=== PATIENT | female | born 1990 | race Two or more races ===

== ENCOUNTER 2016-09-17 09:17 | Emergency (ER) | payer BC, MEDICAID, OTHER ==
[2016-09-17 09:23] VITALS: BP 127/89
--- NOTE | 2016-09-17 09:38 | ER Document Report ---
ED General - General Chief Complaint: Headache Stated Complaint: COUGH, NOSE BLEED Time Seen by Provider: 09/17/16 09:34 Mode of Arrival: Ambulatory Information source: Patient Notes: 26-year-old female reports 2 week history of intermittent discomfort in left ear nasal congestion intermittent nosebleeds nonproductive cough. She also reports a one episode of vomiting yesterday. She also reports 3 days ago having onset of heavy period but she says that that is typical for her since she got a depth shot with frequent irregular heavy periods. She denies chest pain, abdominal pain, or back pain. He reports no vomiting or diarrhea this morning. She reports she was able to eat yesterday. Physical Exam: General: Alert, appears well. HEENT: Normocephalic. Atraumatic. PERRLA. Extraocular movements intact. Oropharynx clear. Panic members are canals clear Neck: Supple. Non-tender. No adenopathy no JVD Respiratory: No respiratory distress. Clear and equal breath sounds bilaterally. Cardiovascular: Regular rate and rhythm. Abdominal: Normal Inspection. Soft, non-tender. No distension. Normal Bowel Sounds. Back: Non-tender. No deformity or step off. Extremities all warm to plus pulses no cyanosis no edema Neurological: Speech clear mentation normal ambulates without difficulty Psychological: Normal affect. Normal Mood. Skin: Warm. Dry. Normal color. TRAVEL OUTSIDE OF THE [place] IN LAST 30 DAYS: No - Related Data Allergies/Adverse Reactions: iodine [Iodine] Allergy (Verified 05/23/15 05:20) Shellfish * [Shellfish] Allergy (Verified 05/23/15 05:20) Past Medical History - Social History Smoking Status: Current Some Day Smoker Chew tobacco use (# tins/day): No Drug Abuse: None Family History: CAD, DM, Hypertension Patient has suicidal ideation: No Patient has homicidal ideation: No Pulmonary Medical History: Reports: Hx Asthma - childhood Neurological Medical History: Reports: Hx Migraine Renal/ Medical History: Denies: Hx Peritoneal Dialysis - Immunizations Immunizations up to date: Yes Hx Diphtheria, Pertussis, Tetanus Vaccination: No Review of Systems - Review of Systems Constitutional: denies: Chills, Fever EENT: See HPI Cardiovascular: denies: Chest pain, Palpitations, Syncope Respiratory: Cough. denies: Short of breath, Wheezing Gastrointestinal: See HPI. denies: Abdominal pain Genitourinary: denies: Burning Female Genitourinary: Last menstrual period - Now, Heavy/abnormal periods, Vaginal bleeding Musculoskeletal: denies: Back pain Skin: denies: Rash Hematologic/Lymphatic: denies: Swollen glands Neurological/Psychological: denies: Weakness, Numbness Physical Exam - Vital signs Vitals: Temp Pulse Resp BP Pulse Ox 98.6 F 85 14 127/89 H 99 09/17/16 09:20 09/17/16 09:20 09/17/16 09:20 09/17/16 09:20 09/17/16 09:20 Course - Re-evaluation Re-evalutation: 09/17/16 10:20 Patient reports that she frequently develops nausea vomiting and abdominal cramping with her periods no discussed with her she should follow up with her OB /[employer] for that. She is not now has benign abdominal exam and no indication for further workup for this in the emergency department. Similar symptoms are also consistent with viral URI sheet instructed to take over-the- counter medicines for that. She also reports that she was having nosebleeds this morning but this stopped spontaneously discussed use of direct pressure and ice packs. There is no active bleeding now. - Vital Signs Vital signs: Temp Pulse Resp BP Pulse Ox 98.6 F 85 14 127/89 H 99 09/17/16 09:20 09/17/16 09:20 09/17/16 09:20 09/17/16 09:20 09/17/16 09:20 Discharge - Discharge Clinical Impression: Epistaxis, Menorrhagia with irregular cycle Upper respiratory tract infection Qualifiers: URI type: unspecified URI Qualified Code(s): J06.9 - Acute upper respiratory infection, unspecified Condition: Stable Disposition: HOME, SELF-CARE Instructions: Upper Respiratory Illness ([facility]) Additional Instructions: Menorrhagia You are having severe bleeding from the uterus. We call this menorrhagia. It is most often caused by a hormone imbalance. The lining of the uterus grows too thick, then comes sloughs off with severe bleeding. There's often cramping and passage of clots. Sometimes menorrhagia is caused by benign muscle tumors in the uterus, called fibroids. There's no evidence of miscarriage or tubal . Menorrhagia often has no clear cause. But it's especially common at times when the normal menstrual cycle is disturbed -- whether by recent , use of hormones, or impending menopause. Some medical problems, such as obesity , stress, or thyroid problems make menorrhagia more likely. In many cases, the menstrual cycle will return to normal without treatment. Antiinflammatory pain medicine, like ibuprofen, can decrease cramping. Where the bleeding is significant, high-dose estrogen will usually stop the bleeding within a day of two. A cycle or two of hormones ( control pills) can help restore the uterus to normal. In some patients where bleeding is severe or resistant to treatment, a D&C is required. A endometrial biopsy (a sample of the inside of the uterus) may be recommended for some older women. This would be done by a gynecology specialist. Treatment for anemia may be required if bleeding is severe. You should rest and avoid intercourse until the bleeding is controlled. Call the doctor or return for re-examination if you feel faint, have increasing pain, or have a major increase in the amount of bleeding. Forms: Return to Work Referrals: [facility] [Provider Group] - Follow up in 1 week
== END 2016-09-17 10:36 | disposition home or self-care (01) ==
LOC: ER 09:17
DX: J06.9 Acute upper respiratory infection, unspecified (principal); N92.1 Excessive and frequent menstruation with irregular cycle; R04.0 Epistaxis; R05 Cough; R11.10 Vomiting, unspecified; Z91.013 Allergy to seafood; F17.200 Nicotine dependence, unspecified, uncomplicated
CPT/HCPCS: 81025; 99283

== ENCOUNTER 2016-09-20 09:14 | Emergency (ER) | payer BC ==
[2016-09-20] MEDS ORDERED: ACETAMINOPHEN 325 MG TABLET PO ONE (09:39)
[2016-09-20] MEDS ORDERED: ONDANSETRON 4 MG TAB.RAPDIS PO ONE (09:39)
--- NOTE | 2016-09-20 09:44 | ER Document Report ---
HPI - HPI Patient complains to provider of: sore throat, ear pain Onset: Other - Ear pain 17 days, sore throat 3 days Onset/Duration: Persistent Quality of pain: Achy Pain Level: 4 Context: Patient presents complaining of left-sided headache pain off and on for the past 17 days with sore throat and left ear pain that has now moved to involve bilateral ears. Patient reports cough for the past week. Patient does complain of some nausea last vomited 4 days ago. Patient was evaluated here and diagnosed with a URI 3 days ago. Patient reports that she noticed some drainage on her pillow after laying her head down and suspects that the drainage came from her left ear. Patient reports headache pain is typical of migraines that she has had in the past. Associated Symptoms: Nonproductive cough - 17 days, Earache - 4 days ago, Fever , Headache - 1 week off and on 17 days, Nausea, Vomiting - 4 days ago Exacerbated by: Other - Light and noise effect headache Relieved by: Denies Similar symptoms previously: Yes Recently seen / treated by doctor: Yes - ROS ROS below otherwise negative: Yes Systems Reviewed and Negative: Yes All other systems reviewed and negative - CONSTITUTIONAL Constitutional: REPORTS: Fever - 4 days ago - EENT EENT: REPORTS: Sore Throat, Ear Pain - NEURO Neurology: REPORTS: Headache - CARDIOVASCULAR Cardiovascular: DENIES: Chest pain - RESPIRATORY Respiratory: REPORTS: Coughing. 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 IN LAST 30 DAYS: No - HEENT HEENT: Atraumatic, Normocephalic, Pharyngeal Tenderness. negative: Pharyngeal Exudate, Pharyngeal Erythema, Tympanic Membrane Red, Tympanic Membrane Bulging - NECK Neck: Lymphadenopathy-Left, Lymphadenopathy-Right Notes: No meningismus - RESPIRATORY Respiratory: Breath Sounds Normal, No Respiratory Distress, Chest Non-Tender - CARDIOVASCULAR Cardiovascular: Regular Rate, Regular Rhythm, No Murmur - BACK Back: Normal Inspection - MUSCULOSKELETAL/EXTREMETIES Musculoskeletal/Extremeties: PÉREZ MCLEAN - NEURO Level of Consciousness: Awake, Alert, Appropriate Motor/Sensory: No Motor Deficit, No Sensory Deficit - DERM Integumentary: Warm, Dry, No Rash Course - Re-evaluation Re-evalutation: 09/20/16 10:36 Spoke with laboratory geneticist who states that it will be 10 more minutes for rapid strep results. - Laboratory Laboratory results interpreted by me: 09/20/16 10:48 Labs- Entire Visit 09/20/16 09:48 Group A Strep Rapid NEGATIVE Discharge - Discharge Clinical Impression: Sore throat, Otalgia of both ears URI (upper respiratory infection) Qualifiers: URI type: unspecified URI Qualified Code(s): J06.9 - Acute upper respiratory infection, unspecified Headache Qualifiers: Headache type: unspecified Headache chronicity pattern: episodic headache Intractability: not intractable Qualified Code(s): R51 - Headache Condition: Stable Disposition: HOME, SELF-CARE Instructions: Upper Respiratory Illness ([facility]), Sore Throat ([facility]), Headache ([facility] ) Additional Instructions: Return immediately for any new or worsening symptoms Followup with your primary care provider, call tomorrow to make a followup appointment Throat culture is pending, we will call if you need any different treatment. Prescriptions: Butalb/Acetaminophen/Caffeine [Fioricet (50-325-40 mg) Tablet] 1 - 2 tab PO Q4H #12 each Ondansetron HCl [Zofran 4 mg Tablet] 1 - 2 tab PO Q6 PRN #10 tablet PRN Reason: Forms: Return to Work Referrals: [facility] [Provider Group] - Follow up as needed [facility] [Provider Group] - 09/22/16
[2016-09-20 11:06] VITALS: BP 110/65
== END 2016-09-20 11:05 | disposition home or self-care (01) ==
LOC: ER 09:14
DX: J06.9 Acute upper respiratory infection, unspecified (principal); R51 Headache; J02.9 Acute pharyngitis, unspecified; H92.03 Otalgia, bilateral; F17.200 Nicotine dependence, unspecified, uncomplicated
CPT/HCPCS: 99283; 87070; 87880; S0119

== ENCOUNTER 2017-08-28 11:09 | Emergency (ER) | payer SELFPAY ==
--- NOTE | 2017-08-28 11:38 | ER Document Report ---
ED Medical Screen (RME) - General Chief Complaint: Low Back Pain Stated Complaint: LOW BACK PAIN, HIP PAIN Time Seen by Provider: 08/28/17 11:14 Notes: presents for concerns of miscarriage. She has been having several days of left-sided abdominal cramping that radiates to her back. She denies any dysuria at this time loss of fluids or vaginal bleeding. Old chart records shows that she is A+. She denies any recent fevers or illnesses. She presents to the emergency department for concerns of miscarriage and she has not had a formal ultrasound yet. I have greeted and performed a rapid initial assessment of this patient. A comprehensive ED assessment and evaluation of the patient, analysis of test results and completion of the medical decision making process will be conducted by additional ED providers. PHYSICAL EXAMINATION: GENERAL: Well-appearing, well-nourished and in no acute distress. HEAD: Atraumatic, normocephalic. EYES: Pupils equal round extraocular movements intact, conjunctiva are normal. ENT: Nares patent NECK: Normal range of motion LUNGS: No respiratory distress Musculoskeletal: Normal range of motion NEUROLOGICAL: Normal speech, normal gait. PSYCH: Normal mood, normal affect. SKIN: Warm, Dry, normal turgor, no rashes or lesions noted. TRAVEL OUTSIDE OF THE [place] IN LAST 30 DAYS: No - Related Data Allergies/Adverse Reactions: iodine [Iodine] Allergy (Verified 09/20/16 09:17) Shellfish * [Shellfish] Allergy (Verified 09/20/16 09:17) Past Medical History - Social History Chew tobacco use (# tins/day): No Frequency of alcohol use: None Drug Abuse: None Pulmonary Medical History: Reports: Hx Asthma - childhood Neurological Medical History: Reports: Hx Migraine Renal/ Medical History: Denies: Hx Peritoneal Dialysis - Immunizations Immunizations up to date: Yes Hx Diphtheria, Pertussis, Tetanus Vaccination: No Physical Exam - Vital signs Vitals: Temp Pulse Resp BP Pulse Ox 97.5 F 73 18 111/72 100 08/28/17 11:25 08/28/17 11:25 08/28/17 11:25 08/28/17 11:25 08/28/17 11:25 Course - Vital Signs Vital signs: Temp Pulse Resp BP Pulse Ox 97.5 F 73 18 111/72 100 08/28/17 11:25 08/28/17 11:25 08/28/17 11:25 08/28/17 11:25 08/28/17 11:25
--- NOTE | 2017-08-28 11:55 | ER Document Report ---
HPI - HPI Patient complains to provider of: Left lower pelvic pain Onset: Other - 3 days Onset/Duration: Persistent Quality of pain: Achy Pain Level: 5 Context: She presents complaining of left lower pelvic pain for the past 3 days. Patient states she is currently 8 weeks . Patient denies any vaginal bleeding or discharge at this time. Patient states she did have some vaginal discharge earlier in the week and some dysuria but states the symptoms have resolved. Patient denies any concerns about sexually transmitted infection. Associated Symptoms: Other - Left lower pelvic pain. denies: Fever Exacerbated by: Denies Relieved by: Denies Similar symptoms previously: No Recently seen / treated by doctor: No - ROS ROS below otherwise negative: Yes Systems Reviewed and Negative: Yes All other systems reviewed and negative - CONSTITUTIONAL Constitutional: DENIES: Fever, Chills - RESPIRATORY Respiratory: DENIES: Trouble Breathing, Coughing - GASTROINTESTINAL Gastrointestinal: REPORTS: Abdominal Pain. DENIES: Nausea, Patient vomiting - URINARY Urinary: DENIES: Dysuria, Urgency, Frequency - REPRODUCTIVE Reproductive: REPORTS: :. 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 IN LAST 30 DAYS: No - HEENT HEENT: Atraumatic, Normocephalic - NECK Neck: Normal Inspection, Supple - RESPIRATORY Respiratory: Breath Sounds Normal, No Respiratory Distress - CARDIOVASCULAR Cardiovascular: Regular Rate, Regular Rhythm, No Murmur - GI/ABDOMEN Gastrointestinal: Abdomen Soft, Abdomen Tender - Left lower pelvic tenderness - BACK Back: Normal Inspection. negative: CVA Tenderness-Right, CVA Tenderness-Left - MUSCULOSKELETAL/EXTREMETIES Musculoskeletal/Extremeties: PÉREZ MCLEAN - NEURO Level of Consciousness: Awake, Alert, Appropriate Motor/Sensory: No Motor Deficit - DERM Integumentary: Warm, Dry, No Rash Course - Re-evaluation Re-evalutation: 08/28/17 11:54 Patient refuses any pelvic examination or any transvaginal ultrasound at this time. Patient is concerned that anything intravaginally can cause her to have a miscarriage and she has done lots of reading concerning this matter. Patient does report she had vaginal discharge as well as burning with urination 3 days ago. Provider attempted to explain to patient that the pelvic examination is important to rule out any sign of infection which can lead to miscarriage. Patient has no concerns about any pelvic infection and declines pelvic examination at this time. 08/28/17 14:19 Reviewed patient's results of her urinalysis as well as ultrasound. Patient advised that urine culture will be placed. Patient nontoxic in appearance, no concern for sepsis at this time. - Vital Signs Vital signs: Temp Pulse Resp BP Pulse Ox 97.5 F 73 18 111/72 100 08/28/17 11:25 08/28/17 11:25 08/28/17 11:25 08/28/17 11:25 08/28/17 11:25 - Laboratory Laboratory results interpreted by me: 08/28/17 14:20 Labs- Entire Visit 08/28/17 11:24 Urine Color YELLOW Urine Appearance CLOUDY Urine pH 8.0 Ur Specific Isabella 1.021 Urine Protein NEGATIVE Urine Glucose (UA) NEGATIVE Urine Ketones NEGATIVE Urine Blood NEGATIVE Urine Nitrite NEGATIVE Urine Bilirubin NEGATIVE Urine Urobilinogen NEGATIVE Ur Leukocyte Esterase SMALL H Urine WBC (Auto) 9 Urine RBC (Auto) 10 Urine Bacteria (Auto) TRACE Squamous Epi Cells Auto 6 Amorphous Sediment Auto TRACE Urine Mucus (Auto) OCC Urine Ascorbic Acid 40 H - Diagnostic Test Radiology reviewed: Reports reviewed Discharge - Discharge Clinical Impression: Pelvic pain affecting Qualifiers: Trimester: first trimester Qualified Code(s): O26.891 - Other specified related conditions, first trimester Urinary tract infection Qualifiers: Urinary tract infection type: site unspecified Hematuria presence: without hematuria Qualified Code(s): N39.0 - Urinary tract infection, site not specified Condition: Stable Disposition: HOME, SELF-CARE Instructions: Cephalexin ([facility]), Pelvic Pain in ([facility]), Urinary Tract Infection ([facility]) Additional Instructions: Return immediately for any new or worsening symptoms Followup with your primary care provider, call tomorrow to make a followup appointment Urine culture is pending, we will call if you need any different treatment Prescriptions: Cephalexin Monohydrate [Keflex 500 mg Capsule] 500 mg PO Q6H 5 Days capsule Forms: Return to Work Referrals: JOSÉM IGUEL POSEY MD [Primary Care Provider] - 08/31/17
[2017-08-28 11:57] LABS: AMORPHOUS SEDIMENT,URINE TRACE /HPF; APPEARANCE,URINE CLOUDY; BILIRUBIN,URINE NEGATIVE (NEGATIVE); GLUCOSE, URINE NEGATIVE (NEGATIVE); KETONES,URINE NEGATIVE (NEGATIVE); LEUKOCYTE ESTERASE,URINE SMALL (NEGATIVE); NITRITE,URINE NEGATIVE (NEGATIVE); PROTEIN,URINE NEGATIVE (NEGATIVE); URINE SPECIFIC GRAVITY 1.021; UROBILINOGEN,URINE NEGATIVE mg/dL (<2.0)
[2017-08-28 12:01] LABS: COLOR,URINE YELLOW
--- NOTE | 2017-08-28 12:32 | RADIOLOGY REPORT (SQ) ---
EXAM DESCRIPTION: U/S OB TRANSVAGINAL W/O DOP COMPLETED DATE/TIME: 08/28/2017 12:16 pm REASON FOR STUDY: 8 weeks preg, no formal u/s yet, cramping COMPARISON: None. TECHNIQUE: Transvaginal static and realtime grayscale images acquired of the pelvis. Additional jud cted spectral and color Doppler images recorded. All images stored on PACs. bHCG: Not available. LIMITATIONS: None. FINDINGS: FETUS: Living intrauterine . EGA: 8 week 4 day. JUNAID: 04/05/2018. FHR: 180 beats per minute. SUBCHORIONIC BLEED: No. SIZE OF BLEED: Not applicable. UTERUS: No masses. No anomalies. CERVICAL LENGTH: 4.0 cm. Closed. RIGHT ADNEXA: Ovary not identified. No adnexal free fluid. No adnexal masses. LEFT ADNEXA: Ovary not identified. No adnexal free fluid. No adnexal masses. FREE FLUID: None. OTHER: No other significant finding. IMPRESSION: LIVING INTRAUTERINE . EGA 8 WEEK 4 DAY. Trimester of : First - 0 to 13 weeks. TECHNICAL DOCUMENTATION: JOB ID: [id number] [employer]- All Rights Reserved Reading location - IP/workstation name: [email or web address]
[2017-08-28 15:10] VITALS: BP 124/68
[2017-08-28 15:41] LABS: CHLAM PCR NOT DETECTED (NOT DETECT); GON PCR NOT DETECTED (NOT DETECT)
== END 2017-08-28 14:35 | disposition home or self-care (01) ==
LOC: ER 11:09
DX: O23.91 Unspecified genitourinary tract infection in pregnancy, first trimester (principal); R10.2 Pelvic and perineal pain; Z3A.08 8 weeks gestation of pregnancy
CPT/HCPCS: 76817; 81001; 87086; 87088; 87491; 87591; 99284

== ENCOUNTER 2017-12-13 09:17 | Emergency (ER) | payer MEDICAID ==
[2017-12-13 09:29] VITALS: BP 115/68
--- NOTE | 2017-12-13 09:53 | EKG REPORT ---
SEVERITY:- NORMAL ECG - SINUS RHYTHM : Confirmed by: Zia Arias 13-Dec-2017 09:52:37
[2017-12-13] MEDS ORDERED: CYCLOBENZAPRINE HCL 10 MG TABLET PO ONE (10:06)
--- NOTE | 2017-12-13 10:09 | ER Document Report ---
ED General - General Mode of Arrival: Ambulatory Information source: Patient <LÓPEZ ANDREA - Last Filed: 12/13/17 12:21> - General TRAVEL OUTSIDE OF THE [place] IN LAST 30 DAYS: No <MOGRACIETIFFANIE - Last Filed: 12/13/17 12:34> - General Chief Complaint: Chest Pain Stated Complaint: CHEST PAIN/DIFFICULTY BREATHING Time Seen by Provider: 12/13/17 09:57 Notes: Patient is a 27 year old female presenting to the emergency department complaining of right sided rib pain. Patient states the pain is exacerbated with deep breathing and movement. She mentions having similar pain in the past which would go away after a couple of hours. Patient denies any fevers, vaginal bleeding, contractions, cough, rash or nausea. Patient is G3 A2. (LÓPEZ ANDREA) - Related Data Allergies/Adverse Reactions: iodine [Iodine] Allergy (Verified 12/13/17 09:17) Shellfish * [Shellfish] Allergy (Verified 12/13/17 09:17) Past Medical History - General Information source: Patient - Social History Smoking Status: Never Smoker Chew tobacco use (# tins/day): No Frequency of alcohol use: None Drug Abuse: None Family History: CAD, DM, Hypertension Patient has suicidal ideation: No Patient has homicidal ideation: No Pulmonary Medical History: Reports: Hx Asthma Neurological Medical History: Reports: Hx Migraine <LÓPEZ ANDREA - Last Filed: 12/13/17 12:21> - Social History Smoking Status: Never Smoker Chew tobacco use (# tins/day): No Frequency of alcohol use: None Drug Abuse: None Family History: CAD, DM, Hypertension Patient has suicidal ideation: No Patient has homicidal ideation: No Pulmonary Medical History: Reports: Hx Asthma - childhood Neurological Medical History: Reports: Hx Migraine Renal/ Medical History: Denies: Hx Peritoneal Dialysis - Immunizations Immunizations up to date: Yes Hx Diphtheria, Pertussis, Tetanus Vaccination: No <FLORTIFFANIE - Last Filed: 12/13/17 12:34> Review of Systems - Review of Systems Constitutional: No symptoms reported EENT: No symptoms reported Cardiovascular: No symptoms reported Respiratory: No symptoms reported Gastrointestinal: No symptoms reported Genitourinary: No symptoms reported Female Genitourinary: See HPI, Musculoskeletal: See HPI Skin: No symptoms reported Hematologic/Lymphatic: No symptoms reported Neurological/Psychological: No symptoms reported <LÓPEZ ANDREA - Last Filed: 12/13/17 12:21> Physical Exam <LÓPEZ ANDREA - Last Filed: 12/13/17 12:21> <MOGRACIETIFFANIE - Last Filed: 12/13/17 12:34> - Vital signs Vitals: Temp Pulse Resp BP Pulse Ox 98.5 F 80 20 115/68 100 12/13/17 09:28 12/13/17 09:28 12/13/17 09:28 12/13/17 09:28 12/13/17 09:28 - Notes Notes: GENERAL: Alert, interacts well. No acute distress. HEAD: Normocephalic, atraumatic. EYES: Pupils equal, round, and reactive to light. Extraocular movements intact. ENT: Oral mucosa moist, tongue midline. NECK: Full range of motion. Supple. Trachea midline. LUNGS: Clear to auscultation bilaterally, no wheezes, rales, or rhonchi. No respiratory distress. Right side of chest, lower ribs tender to palpation which reproduces chief complaint. Patient states palpating right lower ribs anteriorly relieves her rib pain. HEART: Regular rate and rhythm. No murmurs, gallops, or rubs. ABDOMEN: Soft, non-tender. Gravid. Bowel sounds present in all 4 quadrants. EXTREMITIES: Moves all 4 extremities spontaneously. No edema, radial and dorsalis pedis pulses 2/4 bilaterally. No cyanosis. NEUROLOGICAL: Alert and oriented x3. Normal speech. PSYCH: Normal affect, normal mood. SKIN: Warm, dry, normal turgor. No rashes or lesions noted. (LÓPEZ ANDREA) Course <LÓPEZ ANDREA - Last Filed: 12/13/17 12:21> <TIFFANIE ARVIZU - Last Filed: 12/13/17 12:34> - Re-evaluation Re-evalutation: 12/13/17 10:07 No cough, fever, dyspnea on exertion, hypoxia, tachypnea or tachycardia to suggest pneumonia. Only tender across the rib cage, no rash to suggest shingles. Patient will be started on Flexeril, this is likely a rib that is slightly out of place from muscle spasm. Patient will be started on Flexeril and discharged home. (TIFFANIE ARVIZU) - Vital Signs Vital signs: Temp Pulse Resp BP Pulse Ox 98.5 F 80 20 115/68 100 12/13/17 09:28 12/13/17 09:28 12/13/17 09:28 12/13/17 09:28 12/13/17 09:28 Discharge <LÓPEZ ANDREA - Last Filed: 12/13/17 12:21> <TIFFANIE ARVIZU - Last Filed: 12/13/17 12:34> - Discharge Clinical Impression: Rib pain on right side, Intercostal muscle pain Condition: Stable Disposition: HOME, SELF-CARE Additional Instructions: Chest Wall Pain Your chest pain has been diagnosed as coming from the chest wall. This is often caused by straining the muscles or joints in the chest during physical activity, direct trauma, coughing, or vigorous vomiting. Persons with arthritis are especially prone to this type of pain, due to inflammation of the cartilage joints near the breast bone. Occasionally, no cause can be found. Rest from strenuous physical activity. This kind of chest pain is usually made worse by movement of the chest. Depending on the symptoms, we may prescribe medicine for pain, muscle relaxation, and antiinflammatory effects. If the pain is new, and seems to be due to muscle strain, cold packs can help. Otherwise, apply gentle warmth to the painful area for 15 minutes every hour or two. You should contact the doctor immediately if things change. Further evaluation is needed if you develop a fever or cough, if the nature of the pain changes, or if you become short of breath. Prescriptions: Cyclobenzaprine HCl [Flexeril 5 mg Tablet] 5 - 10 mg PO TID #20 tablet Referrals: JOSÉ MIGUEL POSEY MD [ACTIVE STAFF] - Follow up as needed Scribe Attestation: 12/13/17 12:34 I personally performed the services described in the documentation, reviewed and edited the documentation which was dictated to the scribe in my presence, and it accurately records my words and actions. (TIFFANIE ARVIZU) Scribe Documentation - Scribe Written by Scribe:: Aram Arriaga, 12/13/2017 11:22 acting as scribe for :: Flor <LÓPEZ ANDREA - Last Filed: 12/13/17 12:21>
== END 2017-12-13 10:14 | disposition home or self-care (01) ==
LOC: ER 09:17
DX: O26.899 Other specified pregnancy related conditions, unspecified trimester (principal); R07.81 Pleurodynia; O99.89 Other specified diseases and conditions complicating pregnancy, childbirth and the puerperium; M79.1 Myalgia; Z3A.00 Weeks of gestation of pregnancy not specified; Z91.013 Allergy to seafood
CPT/HCPCS: 93005; 99284; 93010; J3490

== ENCOUNTER 2018-02-21 09:02 | Outpatient (CLI) | payer MEDICAID ==
[2018-02-21 09:58] LABS: APPEARANCE,URINE CLOUDY; BILIRUBIN,URINE NEGATIVE (NEGATIVE); COLOR,URINE YELLOW; GLUCOSE, URINE NEGATIVE (NEGATIVE); KETONES,URINE NEGATIVE (NEGATIVE); LEUKOCYTE ESTERASE,URINE SMALL (NEGATIVE); NITRITE,URINE NEGATIVE (NEGATIVE); PROTEIN,URINE NEGATIVE (NEGATIVE); URINE SPECIFIC GRAVITY 1.015; UROBILINOGEN,URINE NEGATIVE mg/dL (<2.0)
[2018-02-21 10:00] LABS: URINE AMPHETAMINES SCREEN NEGATIVE; URINE BARBITURATES SCREEN NEGATIVE; URINE BENZODIAZEPINES SCREEN NEGATIVE; URINE COCAINE SCREEN NEGATIVE; URINE MARIJUANA (THC) SCREEN NEGATIVE; URINE METHADONE SCREEN NEGATIVE; URINE PHENCYCLIDINE SCREEN NEGATIVE
--- NOTE | 2018-02-21 10:48 | Non Stress Test Report ---
Non Stress Test Datetime Report Generated by CPN: 02/21/2018 10:48 DEMOGRAPHIC EGA NST: 33.2 INDICATION Indication for Study: Ordered by Provider Indication for Study (NST) Other: lc for pih VITAL SIGNS Temperature - NST: 98.5 MONITORING Monitor Explained: Monitor Explained; Test Explained; Patient Verbalized Understanding Time on Monitor: 02/21/2018 09:24 Time off Monitor: 02/21/2018 10:31 NST Duration: 67 NST INTERVENTIONS NST Interventions: None Physician Notified NST: Dr Marvin BABY A: [id number] BABY A Movement : Present Contraction Frequency : 0 FHR Baseline : 125 Accelerations : 15X15 Decelerations : None Variability : Moderate 6-25bpm NST Review: Meets Criteria for Reactive NST NST Review and Verified By : Zander Omalley RN NST Results: Reactive NST REPORT Report Trigger: Send Report
== END 2018-02-21 10:30 | disposition home or self-care (01) ==
LOC: LC 09:02
PROVIDERS: ATTEND Student in an Organized Health Care Education/Training Program
PROC: 4A1HXCZ Monitoring of Products of Conception, Cardiac Rate, External Approach (ICD-10-PCS; principal; 2018-02-21)
DX: O14.93 Unspecified pre-eclampsia, third trimester (principal); Z3A.33 33 weeks gestation of pregnancy
CPT/HCPCS: 59025; 80307; 81001

== ENCOUNTER 2018-03-08 15:08 | Outpatient (CLI) | payer MEDICAID ==
[2018-03-08] MEDS ORDERED: ONDANSETRON HCL INJ/PF 4 MG/2 ML SDV IV PRN (15:14)
[2018-03-08 16:18] LABS: ABSOLUTE LYMPHOCYTES (AUTO) 1.6 10^3/uL (0.5-4.7); ABSOLUTE MONOCYTES (AUTO) 0.9 10^3/uL (0.1-1.4); ABSOLUTE NEUT (AUTO) 5.6 10^3/uL (1.7-8.2); BASOPHILS % (AUTO) 0.3 % (0-2); EOSINOPHILS % (AUTO) 0.5 % (0-6); HEMATOCRIT 37.9 % (36.0-47.0); HEMOGLOBIN 12.9 g/dL (12.0-15.5); LYMPHOCYTES % (AUTO) 19.5 % (13-45); MEAN CORPUSCULAR HGB CONC 33.9 g/dL (32.0-36.0); MEAN CORPUSCULAR VOLUME 91 fl (80-97); MONOCYTES % (AUTO) 10.7 % (3-13); PLATELET COUNT 157 10^3/uL (150-450); RED BLOOD COUNT 4.15 10^6/uL (3.72-5.28); RED CELL DISTRIBUTION WIDTH 13.8 % (11.5-14.0); TOTAL CELLS COUNTED % (AUTO) 100 %
[2018-03-08 16:41] LABS: APPEARANCE,URINE SLIGHTLY-CLOUDY; BILIRUBIN,URINE NEGATIVE (NEGATIVE); COLOR,URINE YELLOW; GLUCOSE, URINE NEGATIVE (NEGATIVE); KETONES,URINE TRACE mg/dL (NEGATIVE); LEUKOCYTE ESTERASE,URINE TRACE (NEGATIVE); NITRITE,URINE NEGATIVE (NEGATIVE); PROTEIN,URINE NEGATIVE (NEGATIVE); URINE SPECIFIC GRAVITY 1.014; UROBILINOGEN,URINE NEGATIVE mg/dL (<2.0)
[2018-03-08 16:43] LABS: ALANINE AMINOTRANSFERASE 37 U/L (9-52); ALBUMIN 3.3 g/dL (3.5-5.0); ALKALINE PHOSPHATASE 118 U/L (38-126); ANION GAP 12 (5-19); ASPARTATE AMINO TRANSFERASE 41 U/L (14-36); BILIRUBIN,DIRECT 0.1 mg/dL (0.0-0.4); BILIRUBIN,TOTAL 0.3 mg/dL (0.2-1.3); BLOOD UREA NITROGEN 5 mg/dL (7-20); CARBON DIOXIDE 23 mmol/L (22-30); CHLORIDE 104 mmol/L (98-107); GLUCOSE 64 mg/dL (75-110); POTASSIUM 4.3 mmol/L (3.6-5.0); SODIUM 138.6 mmol/L (137-145); TOTAL PROTEIN 6.4 g/dL (6.3-8.2)
--- NOTE | 2018-03-08 17:05 | Non Stress Test Report ---
Non Stress Test Datetime Report Generated by CPN: 03/08/2018 17:05 DEMOGRAPHIC EGA NST: 35.3 INDICATION Indication for Study: Ordered by Provider MONITORING Monitor Explained: Monitor Explained; Test Explained; Patient Verbalized Understanding Time on Monitor: 03/08/2018 15:24 Time off Monitor: 03/08/2018 16:08 NST Duration: 44 NST INTERVENTIONS NST Interventions: PO Hydration; IV Fluids; Reposition Patient Physician Notified NST: NickiMartinez, CNM BABY A: [id number] BABY A Movement : Present Contraction Frequency : 0 FHR Baseline : 130 Accelerations : 15X15 Decelerations : None Variability : Moderate 6-25bpm NST Review: Meets Criteria for Reactive NST NST Review and Verified By : JOAN ROSS Results: Reactive NST REPORT Report Trigger: Send Report
[2018-03-08 17:16] LABS: URINE AMPHETAMINES SCREEN NEGATIVE; URINE BARBITURATES SCREEN NEGATIVE; URINE BENZODIAZEPINES SCREEN NEGATIVE; URINE COCAINE SCREEN NEGATIVE; URINE MARIJUANA (THC) SCREEN NEGATIVE; URINE METHADONE SCREEN NEGATIVE; URINE PHENCYCLIDINE SCREEN NEGATIVE
== END 2018-03-08 17:03 | disposition home or self-care (01) ==
LOC: LC 15:08
PROVIDERS: ATTEND Obstetrics & Gynecology
PROC: 4A1HXCZ Monitoring of Products of Conception, Cardiac Rate, External Approach (ICD-10-PCS; principal; 2018-03-08)
DX: O47.03 False labor before 37 completed weeks of gestation, third trimester (principal); Z3A.35 35 weeks gestation of pregnancy
CPT/HCPCS: 36415; 80053; 80307; 81001; 85025

== ENCOUNTER 2018-03-17 09:30 | Outpatient (CLI) | payer MEDICAID ==
[2018-03-17 10:36] LABS: ABSOLUTE EOSINOPHILS # (AUTO) 0.1 10^3/uL (0.0-0.6); ABSOLUTE LYMPHOCYTES (AUTO) 1.6 10^3/uL (0.5-4.7); BASOPHILS % (AUTO) 0.2 % (0-2); EOSINOPHILS % (AUTO) 0.6 % (0-6); HEMATOCRIT 36.8 % (36.0-47.0); HEMOGLOBIN 12.6 g/dL (12.0-15.5); LYMPHOCYTES % (AUTO) 14.5 % (13-45); MEAN CORPUSCULAR HGB CONC 34.3 g/dL (32.0-36.0); MEAN CORPUSCULAR VOLUME 90 fl (80-97); MONOCYTES % (AUTO) 9.7 % (3-13); PLATELET COUNT 178 10^3/uL (150-450); RED BLOOD COUNT 4.07 10^6/uL (3.72-5.28); RED CELL DISTRIBUTION WIDTH 13.4 % (11.5-14.0); TOTAL CELLS COUNTED % (AUTO) 100 %; WHITE BLOOD COUNT 10.7 10^3/uL (4.0-10.5)
[2018-03-17 10:36] LABS: APPEARANCE,URINE CLEAR; BILIRUBIN,URINE NEGATIVE (NEGATIVE); COLOR,URINE YELLOW; GLUCOSE, URINE NEGATIVE (NEGATIVE); KETONES,URINE NEGATIVE (NEGATIVE); LEUKOCYTE ESTERASE,URINE SMALL (NEGATIVE); NITRITE,URINE NEGATIVE (NEGATIVE); PROTEIN,URINE NEGATIVE (NEGATIVE); URINE SPECIFIC GRAVITY 1.011; UROBILINOGEN,URINE NEGATIVE mg/dL (<2.0)
--- NOTE | 2018-03-17 10:37 | Non Stress Test Report ---
Non Stress Test Datetime Report Generated by CPN: 03/17/2018 10:37 DEMOGRAPHIC EGA NST: 36.5 INDICATION Indication for Study: Ordered by Provider; Other Indication for Study (NST) Other: sent from office for elevated BP VITAL SIGNS Temperature - NST: 98.0 Pulse - NST: 70 RESP - NST: 16 NBPSYS NST: 126 NBPDIA NST: 86 MONITORING Monitor Explained: Monitor Explained; Test Explained; Patient Verbalized Understanding Time on Monitor: 03/17/2018 09:45 Time off Monitor: 03/17/2018 10:05 NST Duration: 20 NST INTERVENTIONS NST Interventions: PO Hydration Physician Notified NST: Dr Schrader BABY A: [id number] BABY A Movement : Present Contraction Frequency : none FHR Baseline : 135 Accelerations : 15X15 Decelerations : None Variability : Moderate 6-25bpm NST Review: Meets Criteria for Reactive NST NST Review and Verified By : Evelin Mauricio RNC NST Results: Reactive NST REPORT Report Trigger: Send Report
[2018-03-17 10:42] LABS: UR PRO/CREAT RATIO RESULT 0.4 mg/mg (0.0-0.2); URINE CREATININE 67.4 mg/dL (16-327); URINE PROTEIN 24.1 mg/dL (<12)
[2018-03-17 10:52] LABS: URINE AMPHETAMINES SCREEN NEGATIVE; URINE BARBITURATES SCREEN NEGATIVE; URINE BENZODIAZEPINES SCREEN NEGATIVE; URINE COCAINE SCREEN NEGATIVE; URINE MARIJUANA (THC) SCREEN NEGATIVE; URINE METHADONE SCREEN NEGATIVE; URINE PHENCYCLIDINE SCREEN NEGATIVE
[2018-03-17 11:01] LABS: ALANINE AMINOTRANSFERASE 25 U/L (9-52); ALBUMIN 2.9 g/dL (3.5-5.0); ALKALINE PHOSPHATASE 108 U/L (38-126); ANION GAP 11 (5-19); ASPARTATE AMINO TRANSFERASE 28 U/L (14-36); BILIRUBIN,TOTAL 0.3 mg/dL (0.2-1.3); BLOOD UREA NITROGEN 9 mg/dL (7-20); CALCIUM 9.2 mg/dL (8.4-10.2); CARBON DIOXIDE 22 mmol/L (22-30); CHLORIDE 105 mmol/L (98-107); GLUCOSE 66 mg/dL (75-110); POTASSIUM 4.7 mmol/L (3.6-5.0); SODIUM 137.6 mmol/L (137-145); TOTAL PROTEIN 5.8 g/dL (6.3-8.2); URIC ACID 4.4 mg/dL (2.5-6.2)
== END 2018-03-17 11:33 | disposition home or self-care (01) ==
LOC: LC 09:30
PROVIDERS: ATTEND Obstetrics & Gynecology
PROC: 4A1HXCZ Monitoring of Products of Conception, Cardiac Rate, External Approach (ICD-10-PCS; principal; 2018-03-17)
DX: O16.3 Unspecified maternal hypertension, third trimester (principal); Z3A.36 36 weeks gestation of pregnancy
CPT/HCPCS: 36415; 59025; 80053; 80307; 81001; 82570; 83615; 84156; 84550; 85025

== ENCOUNTER → 2018-03-18 | Outpatient (CLI) | payer MEDICAID | LOC: OD 11:10 | PROVIDERS: ATTEND Obstetrics & Gynecology | DX: O12.13 Gestational proteinuria, third trimester (principal); Z3A.36 36 weeks gestation of pregnancy ==

== ENCOUNTER 2018-03-19 12:00 | Inpatient (IN) | payer MEDICAID ==
[2018-03-19 13:01] LABS: ABSOLUTE EOSINOPHILS # (AUTO) 0.1 10^3/uL (0.0-0.6); ABSOLUTE LYMPHOCYTES (AUTO) 1.7 10^3/uL (0.5-4.7); ABSOLUTE MONOCYTES (AUTO) 0.7 10^3/uL (0.1-1.4); ABSOLUTE NEUT (AUTO) 6.1 10^3/uL (1.7-8.2); BASOPHILS % (AUTO) 0.3 % (0-2); EOSINOPHILS % (AUTO) 0.8 % (0-6); HEMATOCRIT 36.1 % (36.0-47.0); HEMOGLOBIN 12.5 g/dL (12.0-15.5); LYMPHOCYTES % (AUTO) 19.6 % (13-45); MEAN CORPUSCULAR HEMOGLOBIN 31.1 pg (27.0-33.4); MEAN CORPUSCULAR HGB CONC 34.5 g/dL (32.0-36.0); MEAN CORPUSCULAR VOLUME 90 fl (80-97); MONOCYTES % (AUTO) 8.5 % (3-13); PLATELET COUNT 179 10^3/uL (150-450); RED CELL DISTRIBUTION WIDTH 13.1 % (11.5-14.0); SEGMENTED NEUTROPHILS % (AUTO) 70.8 % (42-78); TOTAL CELLS COUNTED % (AUTO) 100 %; WHITE BLOOD COUNT 8.6 10^3/uL (4.0-10.5)
[2018-03-19 13:20] LABS: ALANINE AMINOTRANSFERASE 24 U/L (9-52); ALBUMIN 2.8 g/dL (3.5-5.0); ALKALINE PHOSPHATASE 110 U/L (38-126); ANION GAP 10 (5-19); ASPARTATE AMINO TRANSFERASE 33 U/L (14-36); BILIRUBIN,DIRECT 0.2 mg/dL (0.0-0.4); BILIRUBIN,TOTAL 0.3 mg/dL (0.2-1.3); BLOOD UREA NITROGEN 6 mg/dL (7-20); CALCIUM 8.9 mg/dL (8.4-10.2); CARBON DIOXIDE 22 mmol/L (22-30); CHLORIDE 106 mmol/L (98-107); GLUCOSE 96 mg/dL (75-110); POTASSIUM 4.3 mmol/L (3.6-5.0); SODIUM 138.3 mmol/L (137-145); TOTAL PROTEIN 5.7 g/dL (6.3-8.2); URIC ACID 3.9 mg/dL (2.5-6.2)
[2018-03-19 19:09] LABS: 24 HOUR URINE PROTEIN RESULT 808 mg/day (42-225); 24 HR URINE CREAT RESULT 0.9 mg/day (0.8-2.0); URINE CREATININE 42.4 mg/dL (16-327); URINE PROTEIN 40.2 mg/dL (<12)
[2018-03-19] MEDS ORDERED: RINGERS SOLUTION,LACTATED 1,000 ML IV PRN (21:54)
[2018-03-19] MEDS ORDERED: RINGERS SOLUTION,LACTATED 300 ML IV ONE (21:54)
[2018-03-19] MEDS ORDERED: PENICILLIN G POTASSIUM 5,000,000 UNIT in DEXTROSE 5%-WATER 100 ML IV ONE (21:54)
[2018-03-19] MEDS ORDERED: RINGERS SOLUTION,LACTATED 1,000 ML IV ONE (21:54)
[2018-03-19] MEDS ORDERED: DINOPROSTONE 10 MG VAGINAL INSERT.SR ONE (21:58)
[2018-03-19] MEDS ORDERED: NALBUPHINE HCL INJ 10 MG/1 ML AMPULE ONE (21:58)
[2018-03-19] MEDS: RINGERS SOLUTION,LACTATED 1,000 ML IV PRN (22:09)
[2018-03-19] MEDS ORDERED: NALBUPHINE HCL INJ 10 MG/1 ML AMPULE INJ ONE (22:14)
[2018-03-19 22:34] LABS: ABSOLUTE EOSINOPHILS # (AUTO) 0.1 10^3/uL (0.0-0.6); ABSOLUTE LYMPHOCYTES (AUTO) 2.5 10^3/uL (0.5-4.7); ABSOLUTE MONOCYTES (AUTO) 1.2 10^3/uL (0.1-1.4); ABSOLUTE NEUT (AUTO) 6.9 10^3/uL (1.7-8.2); BASOPHILS % (AUTO) 0.4 % (0-2); EOSINOPHILS % (AUTO) 0.6 % (0-6); HEMATOCRIT 35.5 % (36.0-47.0); HEMOGLOBIN 12.2 g/dL (12.0-15.5); LYMPHOCYTES % (AUTO) 23.7 % (13-45); MEAN CORPUSCULAR HEMOGLOBIN 31.1 pg (27.0-33.4); MEAN CORPUSCULAR HGB CONC 34.5 g/dL (32.0-36.0); MEAN CORPUSCULAR VOLUME 90 fl (80-97); MONOCYTES % (AUTO) 11.1 % (3-13); PLATELET COUNT 173 10^3/uL (150-450); RED BLOOD COUNT 3.94 10^6/uL (3.72-5.28); RED CELL DISTRIBUTION WIDTH 13.2 % (11.5-14.0); SEGMENTED NEUTROPHILS % (AUTO) 64.2 % (42-78); TOTAL CELLS COUNTED % (AUTO) 100 %; WHITE BLOOD COUNT 10.7 10^3/uL (4.0-10.5)
[2018-03-19 22:50] LABS: ALANINE AMINOTRANSFERASE 21 U/L (9-52); ALBUMIN 2.7 g/dL (3.5-5.0); ALKALINE PHOSPHATASE 110 U/L (38-126); ANION GAP 11 (5-19); ASPARTATE AMINO TRANSFERASE 31 U/L (14-36); BILIRUBIN,DIRECT 0.2 mg/dL (0.0-0.4); BILIRUBIN,TOTAL 0.3 mg/dL (0.2-1.3); BLOOD UREA NITROGEN 9 mg/dL (7-20); CARBON DIOXIDE 21 mmol/L (22-30); CHLORIDE 106 mmol/L (98-107); GLUCOSE 101 mg/dL (75-110); SODIUM 137.7 mmol/L (137-145); TOTAL PROTEIN 5.5 g/dL (6.3-8.2)
[2018-03-19] MEDS ORDERED: OXYTOCIN 10 UNIT/ML VIAL ONE (22:54)
[2018-03-19] MEDS ORDERED: LIDOCAINE 1% INJ-PF (10 MG/ML) 30 ML SDV ONE (22:54)
[2018-03-19] MEDS ORDERED: OXYTOCIN/NORMAL SALINE 20 UNIT/1,000 ML RTUINJ ONE (22:54)
[2018-03-19] MEDS ORDERED: MISOPROSTOL 0.2 MG TABLET ONE (22:54)
[2018-03-19] MEDS: OXYTOCIN/NORMAL SALINE 20 UNIT/1,000 ML RTUINJ IV PRN (23:08)
[2018-03-19] MEDS ORDERED: PENICILLIN G-K 5 MILLION UNIT VIAL ONE (23:13)
--- NOTE | 2018-03-20 00:17 | Admission Physical ---
Datetime Report Generated by CPN: 03/20/2018 00:16 CURRENT ADMISSION Chief Complaint: Signs/Symptoms Gestational HTN Indication for Induction: Eclampsia-Mild Admit Impression : Term, Intrauterine ; No Active Labor; Intact Membranes; Induction of Labor Admit Plan: Admit to Unit; Initiate Labor Induction Protocol ALLERGIES Medication Allergies: Yes Medication Allergies: Shellfish * (03/17/2018); iodine (03/17/2018) Latex: No Latex Allergies Food Allergies: seafood Environmental Allergies: no OBSTETRICAL HISTORY EDC: 04/09/2018 00:00 : 3 Para: 0 Term: 0 : 0 SAB: 1 IAB: 1 Ectopic: 0 Livin Cesareans: 0 VBACs: 0 Multiple Births: 0 Gestational Diabetes: No Rh Sensitization: No Incompetent Cervix: No ANNMARIE: No Infertility: No ART Treatment: No Uterine Anomaly: No IUGR: No Hx Previous C/S: No Macrosomia: No Hx Loss/Stillborn: No PIH: No Hx : No Placenta Previa/Abruption: No Depression/PP Depression: No PTL/PROM: No Post Hemorrhage: No Current Procedures: Ultrasound; NST Obstetrical History Comments: g1-current , elevated 24 hour urine 808, elevated BPs SEE RECORDS Alcohol: No Marijuana : No Cocaine: No Other Illicit Drugs: No Cigarettes: Never Smoker. 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 Surgery: No Heart Disease: No Hosp/Surgery: No Autoimmune Disorder: No Anesthetic Complications: No Kidney Disease: No Abnormal Pap Smear: No Neuro/Epilepsy: No Psychiatric Disorders: No Other Medical Diseases: No Hepatitis/Liver Disease: No Significant Family History: No Varicosities/Phlebitis: No Trauma/Violence : No Thyroid Dysfunction: No INFECTIOUS HISTORY Gonorrhea: No Genital Herpes: No Chlamydia: No Tuberculosis: No Syphilis: No Hepatitis: No HIV/AIDS Exposure: No Rash or Viral Illness: No HPV: No PHYSICAL EXAM General: Normal HEENT: Normal Neurologic: Normal Thyroid: Deferred Heart: Normal Lungs: Normal Breast: Deferred Back: Normal Abdomen: Normal Genitourinary Exam: Normal Extremities: Normal DTRs: Normal Pelvic Type: Adequate Vital Signs: Reviewed VAGINAL EXAM Dilatation: 1 Effacement: 50 Station: -3 Contraction Comments: none MEMBRANES Membranes: Intact FETUS A EGA: 37.1 Monitoring: External US FHR- Baseline: 120 Variability: Moderate 6-25bpm Accelerations: 15X15 Decelerations: None FHR Category: Category I Presentation: Vertex Admit Comment: 27yo at 37+1ega presents for Evaluation for elevated BPs and returned 24 hr UTP. GBS unknown. Pt denies NGUYEN/blurry vision/RUQ pain. She has history of migraines. Will give PCN for GBS unknown. 24hr UTP 808mg. Reviewed PreE diagnosis with patient and recommendations for delivery. Cooks catheter placed and will begin pitocin. IOL with cooks/pitocin. Anticipate . PLANS FOR LABOR AND DELIVERY Labor and Delivery: None Pain Management: Natural Feeding Preference: Breast Circumcision: N/A INFORMED CONSENT Informed Consent Obtained: Vaginal Delivery; Induction of Labor; Risks, Benefits and Alternatives Discussed Signature: with User ID: [email or web address]
[2018-03-20] MEDS ORDERED: PENICILLIN G POTASSIUM 2,500,000 UNIT in DEXTROSE 5%-WATER 50 ML IV SCH (01:56)
[2018-03-20] MEDS ORDERED: HYDRALAZINE HCL INJ/PF 20 MG/1 ML SDV ONE (02:28)
[2018-03-20] MEDS ORDERED: HYDRALAZINE HCL INJ/PF 20 MG/1 ML SDV IV ONE (02:28)
[2018-03-20] MEDS ORDERED: PENICILLIN G-K 5 MILLION UNIT VIAL ONE ×5 (03:29→23:31)
[2018-03-20] MEDS: PENICILLIN G POTASSIUM 2,500,000 UNIT in DEXTROSE 5%-WATER 50 ML IV SCH ×5 (03:44→23:38)
[2018-03-20] MEDS ORDERED: PHENYLEPHRINE HCL INJ/PF 10 MG/1 ML SDV ONE (10:33)
[2018-03-20] MEDS ORDERED: FENTANYL CITRATE INJ/PF 100 MCG/2 ML AMPUL ONE (10:34)
[2018-03-20] MEDS ORDERED: EPHEDRINE SULFATE INJ 50 MG/1 ML AMPULE ONE (10:34)
[2018-03-20] MEDS ORDERED: FENTANYL/BUPIVACAINE/NS/PF 300 MCG/150 ML RTUINJ EPI ONE (10:36)
[2018-03-20] MEDS ORDERED: BUPIVACAINE HCL 0.5 % INJ/PF 30 ML SDV ONE (10:36)
[2018-03-20 11:39] LABS: ABSOLUTE BASOPHILS # (AUTO) 0.1 10^3/uL (0.0-0.2); ABSOLUTE LYMPHOCYTES (AUTO) 1.2 10^3/uL (0.5-4.7); ABSOLUTE MONOCYTES (AUTO) 1.3 10^3/uL (0.1-1.4); ABSOLUTE NEUT (AUTO) 13.6 10^3/uL (1.7-8.2); BASOPHILS % (AUTO) 0.4 % (0-2); HEMATOCRIT 39.3 % (36.0-47.0); HEMOGLOBIN 13.3 g/dL (12.0-15.5); LYMPHOCYTES % (AUTO) 7.5 % (13-45); MEAN CORPUSCULAR HEMOGLOBIN 30.3 pg (27.0-33.4); MEAN CORPUSCULAR HGB CONC 33.7 g/dL (32.0-36.0); MEAN CORPUSCULAR VOLUME 90 fl (80-97); MONOCYTES % (AUTO) 7.9 % (3-13); PLATELET COUNT 171 10^3/uL (150-450); RED BLOOD COUNT 4.37 10^6/uL (3.72-5.28); RED CELL DISTRIBUTION WIDTH 13.3 % (11.5-14.0); SEGMENTED NEUTROPHILS % (AUTO) 84.2 % (42-78); TOTAL CELLS COUNTED % (AUTO) 100 %; WHITE BLOOD COUNT 16.2 10^3/uL (4.0-10.5)
[2018-03-20] MEDS: RINGERS SOLUTION,LACTATED 1,000 ML IV PRN (19:51)
[2018-03-20] MEDS: OXYTOCIN/NORMAL SALINE 20 UNIT/1,000 ML RTUINJ IV PRN (19:51)
[2018-03-21] MEDS ORDERED: FENTANYL/BUPIVACAINE/NS/PF 300 MCG/150 ML RTUINJ EPI ONE (00:48)
[2018-03-21] MEDS ORDERED: OXYTOCIN/NORMAL SALINE 20 UNIT/1,000 ML RTUINJ ONE (01:01)
[2018-03-21] MEDS ORDERED: PENICILLIN G-K 5 MILLION UNIT VIAL ONE ×2 (03:34→07:21)
[2018-03-21] MEDS: PENICILLIN G POTASSIUM 2,500,000 UNIT in DEXTROSE 5%-WATER 50 ML IV SCH ×2 (03:41→16:42)
[2018-03-21] MEDS: RINGERS SOLUTION,LACTATED 1,000 ML IV PRN (03:42)
--- NOTE | 2018-03-21 06:18 | L&D Progress Notes ---
PROGRESS NOTES Datetime Report Generated by CPN: 03/21/2018 06:18 PROGRESS NOTE Informed Consent Obtained: Vaginal Delivery; Induction of Labor; Risks, Benefits and Alternatives Discussed Comment: Patient comfortable without complaints Making progress. Continue Pitocin, expect spontaneous vaginal delivery VAGINAL EXAM Dilatation: 6 Dilatation: 1 Effacement: 90 Effacement: 50 Station: -2 Station: -3 Contractions: 3-5 minutes Contractions: none MEMBRANES Membranes: Intact FETUS A FHR - Baseline: 130 Monitoring: External US Variability: Moderate 6-25bpm Accelerations: 15X15 Decelerations: None FHR Category: Category I Presentation: Vertex SIGNATURE SIGNATURE: [id number] SIGNATURE: [id number] SIGNATURE: [id number] SIGNATURE: ,[id number] SIGNATURE: [id number] Signature: with User ID: [email or web address]
[2018-03-21 06:30] LABS: ABSOLUTE BASOPHILS # (AUTO) 0.1 10^3/uL (0.0-0.2); ABSOLUTE LYMPHOCYTES (AUTO) 2.3 10^3/uL (0.5-4.7); ABSOLUTE MONOCYTES (AUTO) 1.7 10^3/uL (0.1-1.4); ABSOLUTE NEUT (AUTO) 13.5 10^3/uL (1.7-8.2); BASOPHILS % (AUTO) 0.7 % (0-2); EOSINOPHILS % (AUTO) 0.2 % (0-6); HEMATOCRIT 38.4 % (36.0-47.0); HEMOGLOBIN 12.8 g/dL (12.0-15.5); MEAN CORPUSCULAR HEMOGLOBIN 30.5 pg (27.0-33.4); MEAN CORPUSCULAR HGB CONC 33.4 g/dL (32.0-36.0); MEAN CORPUSCULAR VOLUME 92 fl (80-97); MONOCYTES % (AUTO) 9.7 % (3-13); PLATELET COUNT 184 10^3/uL (150-450); RED BLOOD COUNT 4.19 10^6/uL (3.72-5.28); RED CELL DISTRIBUTION WIDTH 13.5 % (11.5-14.0); SEGMENTED NEUTROPHILS % (AUTO) 76.4 % (42-78); TOTAL CELLS COUNTED % (AUTO) 100 %; WHITE BLOOD COUNT 17.6 10^3/uL (4.0-10.5)
[2018-03-21] MEDS ORDERED: HYDRALAZINE HCL INJ/PF 20 MG/1 ML SDV ONE (06:41)
[2018-03-21] MEDS ORDERED: HYDRALAZINE HCL INJ/PF 20 MG/1 ML SDV IV ONE ×2 (06:42→10:01)
[2018-03-21 06:51] LABS: ALANINE AMINOTRANSFERASE 26 U/L (9-52); ALBUMIN 2.6 g/dL (3.5-5.0); ALKALINE PHOSPHATASE 115 U/L (38-126); ANION GAP 9 (5-19); ASPARTATE AMINO TRANSFERASE 32 U/L (14-36); BILIRUBIN,DIRECT 0.2 mg/dL (0.0-0.4); BILIRUBIN,TOTAL 0.5 mg/dL (0.2-1.3); BLOOD UREA NITROGEN 10 mg/dL (7-20); CALCIUM 8.5 mg/dL (8.4-10.2); CARBON DIOXIDE 23 mmol/L (22-30); CHLORIDE 107 mmol/L (98-107); GLUCOSE 74 mg/dL (75-110); POTASSIUM 4.3 mmol/L (3.6-5.0); SODIUM 138.6 mmol/L (137-145); TOTAL PROTEIN 5.5 g/dL (6.3-8.2); URIC ACID 3.7 mg/dL (2.5-6.2)
[2018-03-21] MEDS ORDERED: GENTAMICIN SULFATE INJ 80 MG/2 ML VIAL ONE (09:43)
[2018-03-21] MEDS ORDERED: GENTAMICIN SULFATE INJ 80 MG/2 ML VIAL IV ONE (10:00)
[2018-03-21] MEDS ORDERED: DIBUCAINE 1% OINTMENT 28 GM TP PRN (12:30)
[2018-03-21] MEDS ORDERED: NA PHOS,M-B/NA PHOS,DI-BA (ADULT) 133 ML ENEMA PR PRN (12:30)
[2018-03-21] MEDS ORDERED: DIPH/PERTUSS(ACELL)/TETANUS VAC/PF 0.5 ML SYR (>=10YO) IM PRN (12:30)
[2018-03-21] MEDS ORDERED: DIPHENHYDRAMINE HCL 25 MG CAPSULE PO PRN (12:30)
[2018-03-21] MEDS ORDERED: ACETAMINOPHEN WITH CODEINE #3 TABLET PO PRN ×2 (12:30)
[2018-03-21] MEDS ORDERED: PROMETHAZINE HCL 25 MG SUPP.RECT PR PRN (12:30)
[2018-03-21] MEDS ORDERED: MEASLES,MUMPS&RUBELLA VACC/PF 0.5 ML VIAL SUBCUT PRN (12:30)
[2018-03-21] MEDS ORDERED: GLYCERIN/WITCH HAZEL LEAF 1 EACH MED..PAD TP PRN (12:30)
[2018-03-21] MEDS ORDERED: MAGNESIUM HYDROXIDE SUSP 30 ML UDCUP PO PRN (12:30)
[2018-03-21] MEDS ORDERED: ZOLPIDEM TARTRATE 5 MG TABLET PO PRN (12:30)
[2018-03-21] MEDS ORDERED: PROMETHAZINE HCL INJ 25 MG/1 ML VIAL IV PRN (12:30)
[2018-03-21] MEDS ORDERED: BENZOCAINE/MENTHOL AEROSOL SPRAY 56 ML TOP PRN (12:30)
[2018-03-21] MEDS ORDERED: ACETAMINOPHEN 325 MG TABLET PO PRN (12:30)
[2018-03-21] MEDS ORDERED: OXYTOCIN/NORMAL SALINE 20 UNIT/1,000 ML RTUINJ IV PRN (12:30)
[2018-03-21] MEDS ORDERED: PSEUDOEPHEDRINE HCL 30 MG TABLET PO PRN (12:30)
[2018-03-21] MEDS ORDERED: PROMETHAZINE HCL 25 MG TABLET PO PRN (12:30)
[2018-03-21] MEDS ORDERED: MISOPROSTOL 0.2 MG TABLET PR PRN (12:58)
[2018-03-21] MEDS ORDERED: IBUPROFEN 800 MG TABLET ONE ×2 (13:23→22:11)
[2018-03-21] MEDS ORDERED: AMPICILLIN SOD INJ 2 GM VIAL ONE ×2 (13:47→21:20)
[2018-03-21] MEDS ORDERED: NIFEDIPINE 30 MG TAB.ER.24 PO ONE (14:09)
--- NOTE | 2018-03-21 14:29 | Delivery Summary ---
Del Sum A-C Datetime Report Generated by CPN: 03/21/2018 14:29 DELIVERY PERSONNEL DELIVERY PERSONNEL: [id number] Delivery Doctor:: Juanis Marvin MD Anesthesiologist:: Blanche Gomez MD Labor and Delivery Nurse:: CHASITY Mendiola Labor and Delivery Nurse:: Megan Díaz RN Trim Machine Operator/UROLOGY PHYSICIAN ASSISTANT: Gabriella Pisano, KINESEOLOGIST MATERNAL INFORMATION Delivery Anesthesia: Epidural Medications After Delivery: Pitocin Drip 20 Units/1000ml NSS Estimated Blood Loss (ml): 478 Maternal Complications: Other Other Maternal Complications: prolonged rupture Complication Details: pre eclampsia Provider Comments: VFI delivered in JENNIFER presentation through loose nuchal cord. Shoulders and body delivered without difficulty. Cord doubly clamped and cut and to maternal abdomen for NRP. Placenta delivered intact spontaneously. FF at U after cytotec due to significant bleeding after delivery of placenta with good response to medication. No perineal laceration. Mother and baby stable upon provider leaving the room. LABOR SUMMARY EDC: 04/09/2018 00:00 No. Babies in Womb: 1 Attempted: No Labor Anesthesia: Epidural LABOR INFORMATION Reason for Induction: Pre-Eclampsia Onset of Labor: 03/21/2018 06:08 Complete Dilatation: 03/21/2018 11:18 Cervical Ripening Agents: Cervidil; Baltazar Balloon Oxytocin: Induction Group B Beta Strep: Negative Antibiotics # of Doses: x7 Antibiotics Time of Last Dose: 0949/gent 170 mg Name of Antibiotic Given: penicillin Steroids Given: None Reason Steroids Not Administered: Not Applicable MEMBRANES Membranes Rupture Method: Artificial Rupture of Membranes: 03/20/2018 08:30 Length of Rupture (hr): 27.05 Amniotic Fluid Color: Clear Amniotic Fluid Amount: Small Amniotic Fluid Odor: None STAGES OF LABOR Stage 1 hr: 5 Stage 1 min: 10 Stage 2 hr: 0 Stage 2 min: 15 Stage 3 hr: 0 Stage 3 min: 3 Total Time in Labor hr: 5 Total Time in Labor min: 28 VAGINAL DELIVERY Episiotomy: None Laceration #1: None Laceration Extension #1: N/A Laceration Repair: Not Applicable Sponge Count Correct: Yes Sharps Count Correct: Yes BABY A INFORMATION Infant Delivery Date/Time: 03/21/2018 11:33 Method of Delivery: Vaginal Born in Route : No : N/A Forceps: N/A Vacuum Extraction: N/A Shoulder Dystocia : No PRESENTATION/POSITION BABY A Presentation: Cephalic Cephalic Presentation: Vertex Vertex Position: Left Occipital Anterior Breech Presentation: N/A PLACENTA INFORMATION BABY A Placenta Delivery Time : 03/21/2018 11:36 Placenta Method of Delivery: Spontaneous Placenta Status: Delivered SCORES BABY A Heart Rate 1 min: >100 bpm Resp Effort 1 min: Good Cry Reflex Irritability 1 min: Cough or Sneeze or Pulls Away Muscle Tone 1 min: Active Motion Color 1 min: Blue/Pale Resuscitation Effort 1 min: Tactile Stimulation SCORE 1 MIN: 8 Heart Rate 5 min: >100 bpm Resp Effort 5 min: Good Cry Reflex Irritability 5 min: Cough or Sneeze or Pulls Away Muscle Tone 5 min: Active Motion Color 5 min: Body [place], Extremities Blue Resuscitation Effort 5 min: Tactile Stimulation SCORE 5 MIN: 9 INFORMATION BABY A Gestational Age at Delivery: 37.2 Gestational Status: Early Term- 37- 38.6 Weeks Outcome : Liveborn Infant Condition : Stable Sex: Female IDENTIFICATION BABY A Verification Date/Time: 03/21/2018 11:43 ID Band Number: [id number] Mother's Name Verified: Yes Infant RN Verifying Infant: B Baidy RN Additional Verifying Personnel: H Arjun RN WEIGHT/LENGTH BABY A Birthweight (gm): 2820 Infant Weight (lb): 6 Infant Weight (oz): 3 Infant Length (in): 20.00 Length (cm): 50.80 CORD INFORMATION BABY A No. Cord Vessels: 3 Nuchal Cord : Around Neck x1, Loose Cord Blood Taken: Yes-For Storage (Mom's Blood type +) Suction: Mouth ASSESSMENT BABY A Complications: None Physical Findings at Delivery: Molding of the Head Respirations: Appears Normal Skin to Skin: Yes Skin to Skin Time (min): 10 Bar Attendant/ALS Called : No Infant Care By: Jocelyn Díaz RN Transferred To: Remains with Mother SIGNATURES Signature: with User ID: [email or web address] : I was personally available for consultation and serving as supervising physician for the MLP.
[2018-03-21] MEDS: AMPICILLIN SOD INJ 2 GM VIAL IM SCH (16:40)
[2018-03-21] MEDS: IBUPROFEN 800 MG TABLET PO SCH ×2 (16:40→22:15)
[2018-03-21] MEDS: NIFEDIPINE 30 MG TAB.ER.24 PO SCH (16:41)
[2018-03-21] MEDS ORDERED: GENTAMICIN SULFATE INJ 80 MG/2 ML VIAL IV SCH (18:00)
[2018-03-21] MEDS ORDERED: GENTAMICIN SULFATE INJ 80 MG/2 ML VIAL IV PRN (18:11)
[2018-03-21] MEDS: FERROUS SULFATE 325 MG TABLET PO SCH (18:39)
[2018-03-21] MEDS: DOCUSATE SODIUM 100 MG CAPSULE PO SCH (18:39)
[2018-03-21] MEDS: GENTAMICIN SULFATE 130 MG in DEXTROSE 5%-WATER 100 ML IV SCH (18:41)
[2018-03-21] MEDS ORDERED: AMPICILLIN SOD INJ 2 GM VIAL IV SCH (18:41)
[2018-03-21] MEDS ORDERED: AMPICILLIN SOD INJ 2 GM VIAL IV PRN (18:59)
[2018-03-21] MEDS ORDERED: AMPICILLIN SODIUM 2 GM in NORMAL SALINE 100 ML IV ONE (19:00)
[2018-03-21] MEDS ORDERED: MAGNESIUM SULFATE 20 GM/500 ML RTUINJ IV ONE (19:16)
[2018-03-21] MEDS ORDERED: MAGNESIUM SULFATE 4 GM/100 ML RTUPB IV ONE ×2 (19:16→19:27)
[2018-03-21] MEDS ORDERED: MAGNESIUM SULFATE 20 GM/500 ML RTUINJ IV PRN (19:27)
[2018-03-22] MEDS ORDERED: FAMOTIDINE 20 MG TABLET ONE ×2 (00:25→09:22)
[2018-03-22] MEDS: FAMOTIDINE 20 MG TABLET PO SCH ×3 (00:27→22:06)
[2018-03-22] MEDS ORDERED: GENTAMICIN SULFATE INJ 80 MG/2 ML VIAL ONE (01:56)
[2018-03-22] MEDS: GENTAMICIN SULFATE 130 MG in DEXTROSE 5%-WATER 100 ML IV SCH (02:08)
[2018-03-22] MEDS ORDERED: AMPICILLIN SODIUM 2 GM in NORMAL SALINE 100 ML IV SCH ×4 (03:00→09:00)
[2018-03-22] MEDS ORDERED: AMPICILLIN SOD INJ 2 GM VIAL ONE ×2 (03:08→08:37)
[2018-03-22] MEDS: RINGERS SOLUTION,LACTATED 1,000 ML IV PRN (05:16)
[2018-03-22] MEDS ORDERED: IBUPROFEN 800 MG TABLET ONE (06:06)
[2018-03-22] MEDS: IBUPROFEN 800 MG TABLET PO SCH ×3 (06:07→22:06)
[2018-03-22 06:14] LABS: HEMATOCRIT 28.3 % (36.0-47.0); MEAN CORPUSCULAR HEMOGLOBIN 30.6 pg (27.0-33.4); MEAN CORPUSCULAR HGB CONC 33.8 g/dL (32.0-36.0); MEAN CORPUSCULAR VOLUME 91 fl (80-97); PLATELET COUNT 158 10^3/uL (150-450); RED BLOOD COUNT 3.13 10^6/uL (3.72-5.28); RED CELL DISTRIBUTION WIDTH 13.5 % (11.5-14.0); WHITE BLOOD COUNT 17.3 10^3/uL (4.0-10.5)
[2018-03-22 06:16] LABS: HEMOGLOBIN 9.6 g/dL (12.0-15.5)
--- NOTE | 2018-03-22 08:18 | L&D Progress Notes ---
PROGRESS NOTES Datetime Report Generated by CPN: 03/22/2018 08:18 PROGRESS NOTE Impression: Eclampsia - Mild Informed Consent Obtained: Risks, Benefits and Alternatives Discussed Comment: Now normal to mild range BPs now and diuresed over 7 liters. Will discontinue magnesium now and restart procardia. Doing well. FETUS C SIGNATURE: [id number];[id number];[id number];15,[id number] SIGNATURE: [id number];[id number];14,[id number];10,[id number] Signature: with User ID: [email or web address]
[2018-03-22] MEDS ORDERED: PRENATAL VITAMIN W DHA CAPSULE PO ONE (09:22)
[2018-03-22] MEDS ORDERED: SENNOSIDES/DOCUSATE 8.6-50 MG 1 EACH TABLET ONE (09:22)
[2018-03-22] MEDS ORDERED: FERROUS SULFATE 325 MG TABLET PO ONE (09:23)
[2018-03-22] MEDS ORDERED: DOCUSATE SODIUM 100 MG CAPSULE ONE (09:23)
[2018-03-22] MEDS ORDERED: NIFEDIPINE 30 MG TAB.ER.24 PO ONE (09:27)
[2018-03-22] MEDS: PRENATAL VITAMIN W DHA CAPSULE PO SCH (09:38)
[2018-03-22] MEDS: SENNOSIDES/DOCUSATE 8.6-50 MG 1 EACH TABLET PO SCH (09:38)
[2018-03-22] MEDS: DOCUSATE SODIUM 100 MG CAPSULE PO SCH ×2 (09:39→17:41)
[2018-03-22] MEDS: NIFEDIPINE 30 MG TAB.ER.24 PO SCH (09:40)
[2018-03-22] MEDS: FERROUS SULFATE 325 MG TABLET PO SCH ×2 (09:40→17:41)
[2018-03-23] MEDS: IBUPROFEN 800 MG TABLET PO SCH ×2 (05:19→14:51)
[2018-03-23] MEDS: FAMOTIDINE 20 MG TABLET PO SCH (09:44)
[2018-03-23] MEDS: NIFEDIPINE 30 MG TAB.ER.24 PO SCH (09:45)
[2018-03-23] MEDS: SENNOSIDES/DOCUSATE 8.6-50 MG 1 EACH TABLET PO SCH (09:45)
[2018-03-23] MEDS: PRENATAL VITAMIN W DHA CAPSULE PO SCH (09:45)
[2018-03-23] MEDS: DOCUSATE SODIUM 100 MG CAPSULE PO SCH (09:45)
[2018-03-23] MEDS: FERROUS SULFATE 325 MG TABLET PO SCH (09:45)
--- NOTE | 2018-03-23 10:52 | PDOC DISCHARGE SUMMARY ---
Final Diagnosis Discharge Date: 03/23/18 - Final Diagnosis (1) Vaginal delivery Is this a current diagnosis for this admission?: Yes (2) Pre-eclampsia Is this a current diagnosis for this admission?: Yes Discharge Data - Discharge Medication Prescriptions: Ibuprofen [Motrin 800 mg Tablet] 800 mg PO Q8HP PRN #60 tablet PRN Reason: Nifedipine [Procardia XL 30 mg Tablet] 30 mg PO DAILY #30 tab.er.24 Home Medications: Vit,Calc76/Iron/Folic [Prenatabs Rx Tablet] 1 each PO DAILY 02/21/18 Ferrous Sulfate [Feosol 325 mg Tablet] 325 mg PO BID tablet 03/23/18 Ibuprofen [Motrin 800 mg Tablet] 800 mg PO Q8HP PRN #60 tablet 03/23/18 Nifedipine [Procardia XL 30 mg Tablet] 30 mg PO DAILY #30 tab.er.24 03/23/18 Procedures: NST Intrapartum Procedure(s): Spontaneous Vaginal Delivery - Diagnosis Test Laboratory: Temp Pulse Resp BP Pulse Ox 98.1 F 86 18 144/94 H 100 03/23/18 09:04 03/23/18 09:04 03/23/18 09:04 03/23/18 09:04 03/23/18 09:04 03/19/18 03/19/18 03/20/18 12:38 22:20 11:10 RBC 4.00 3.94 4.37 Hgb 12.5 12.2 13.3 Hct 36.1 35.5 L 39.3 03/21/18 03/22/18 06:23 05:54 RBC 4.19 3.13 L Hgb 12.8 9.6 L D Hct 38.4 28.3 L - Discharge information/Instructions Discharge Activity: Balance Activity w/Rest, Pelvic Rest Discharge Diet: Regular Disposition: HOME, SELF-CARE Follow up with: [facility] in: 3, Days - BP check thursday, sooner if NGUYEN/visual changes/RUQ pain
[2018-03-23 13:30] VITALS: BP 144/94
== END 2018-03-23 15:45 | disposition home or self-care (01) | DRG 807 ==
LOC: LC 12:00 → LR 21:22 → 2S 03-21 15:08 → LR 03-21 19:25 → 2S 03-22 11:51
PROVIDERS: ADMIT Student in an Organized Health Care Education/Training Program; ATTEND Student in an Organized Health Care Education/Training Program
PROC: 4A1HXCZ Monitoring of Products of Conception, Cardiac Rate, External Approach (ICD-10-PCS; 2018-03-19)
PROC: 10907ZC Drainage of Amniotic Fluid, Therapeutic from Products of Conception, Via Natural or Artificial Opening (ICD-10-PCS; 2018-03-20)
PROC: 10E0XZZ Delivery of Products of Conception, External Approach (ICD-10-PCS; principal; 2018-03-21)
PROC: 3E0P7VZ Introduction of Hormone into Female Reproductive, Via Natural or Artificial Opening (ICD-10-PCS; 2018-03-21)
PROC: 3E033VJ Introduction of Other Hormone into Peripheral Vein, Percutaneous Approach (ICD-10-PCS; 2018-03-21)
DX: O14.04 Mild to moderate pre-eclampsia, complicating childbirth (principal); O69.81X0 Labor and delivery complicated by cord around neck, without compression, not applicable or unspecified; Z28.21 Immunization not carried out because of patient refusal; Z91.013 Allergy to seafood; Z3A.37 37 weeks gestation of pregnancy; Z37.0 Single live birth
CPT/HCPCS: 36415; 80053; 82570; 83615; 84156; 84550; 85025; 85027; 86592; 86850; 86900; 86901; 88307; C1726; J0290; J0360; J1580; J2300; J2370; J2540; J2590; J3010; J3475; J3490